=== PATIENT | female | born 1945 | race Caucasian/White ===

== ENCOUNTER 2016-07-12 11:00 | Emergency (ER) | payer MEDICARE ==
[~2016-07-12] VITALS: Ht 167.6 cm; Wt 59.1 kg
[~2016-07-12 11:00] MED LIST: ACYC200C PO; CHOL10008 PO; LOSA50TA37 PO; RESTASIS OU; VERA120T84 PO
--- NOTE | 2016-07-12 11:08 | ED.REPORT ---
HPI-Trauma Minor / Fall Date of Service Jul 12, 2016 ED Provider: Nursing Notes Stated Complaint: STAND BY TRAUMA/POST FALL Allergies: Coded Allergies: albuterol (Verified Allergy, Severe, Shortness of Breath, 10/19/15) tetracycline (Verified Allergy, Severe, 03/24/09) neomycin (Verified Allergy, Mild, Rash, 10/19/15) Uncoded Allergies: RED FOOD DYE (Allergy, Unknown, TONGUE AND LIP SWELLING, 05/17/05) SULFA (Allergy, Unknown, RASH, 03/24/09) Scheduled ([Restasis]) 1 DROP OU BID Acyclovir-Expunged Drug, Do Not Renew! (Acyclovir-Expunged Drug, Do Not Renew!) 200 Mg Capsule 200 MG PO DAILY Losartan Potassium (Losartan Potassium) 50 Mg Tablet 50 MG PO BID Verapamil ER (Verapamil ER) 120 Mg Tablet.er 120 MG PO DAILY Miscellaneous Medications Cholecalciferol (Vitamin D3) (Vitamin D3) 1,000 Unit Tab.chew 1,000 UNIT PO General Time Seen by MD: 11:07 Past Medical History Smoking History Never Smoker Discharge & Departure Referrals: Sam Veliz DO (PCP) Gordon Ramirez DO Jul 12, 2016 11:08 Veronica Bautista MD Jul 12, 2016 11:12
[2016-07-12 11:12] VITALS: BP 183/87; PULSE 76; RESP 14; O2SAT 99
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
[2016-07-12] MEDS ORDERED: 0.9% Sodium Chloride 1,000 ML IV ONE (11:15)
[2016-07-12] MEDS: HYDROmorphone 0.5 mg/0.5 mL iSecure Syringe IVPUSH PRN ×4 (11:35→13:05)
--- NOTE | 2016-07-12 11:40 | DRSVH ---
PROCEDURE: X-RAY PELVIS, ONE OR TWO VIEWS ([id number]) INDICATIONS: trauma TECHNIQUE: One view(s) of the pelvis acquired. COMPARISON: None. FINDINGS: Bones: No fractures or dislocations. No suspicious bony lesions. Soft tissues: Visualized bowel gas pattern is normal. No suspicious soft tissue calcifications. IMPRESSION: Negative for fracture Dictated by: Terry Pedersen M.D. on 07/12/2016 at 11:38 Approved by: Terry Pedersen M.D. on 07/12/2016 at 11:39
--- NOTE | 2016-07-12 11:40 | DRSVH ---
PROCEDURE: X-RAY CHEST ONE VIEW, PORTABLE ([id number]) INDICATIONS: trauma TECHNIQUE: One view of the chest was acquired. COMPARISON: None. FINDINGS: Surgical changes and devices: None. Lungs and pleura: No pleural effusions or pneumothorax. Lungs are clear. Mediastinum: Mediastinal contours appear normal. Heart size is normal. Bones and chest wall: No suspicious bony lesions. Overlying soft tissues appear unremarkable. IMPRESSION: No acute cardiopulmonary abnormality. No posttraumatic changes found. Dictated by: Terry Pedersen M.D. on 07/12/2016 at 11:34 Approved by: Terry Pedersen M.D. on 07/12/2016 at 11:38
[2016-07-12 11:41] LABS: INR 0.95 ratio
[2016-07-12 11:51] LABS: BASOPHILS % (AUTO) 0.2 % (0-3); EOSINOPHILS % (AUTO) 2.7 % (0-5); MONOCYTES % (AUTO) 6.2 % (4-12); Mean Corpuscular Hemoglobin 30.6 pg (27.0-35.0); Mean Corpuscular Volume 86.7 fL (81-100); NEUTROPHILS % (AUTO) 81.3 % (40-74); Platelet Count 266 bil/L (150-400)
[2016-07-12 11:54] LABS: Magnesium 1.9 mg/dL (1.6-2.6)
[2016-07-12 13:06] VITALS: BP 136/72; PULSE 76; RESP 10; O2SAT 99
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
[2016-07-12] MEDS ORDERED: HYDR-4003 PO (14:14)
[2016-07-12] MEDS ORDERED: ONDA8TAB10 PO (14:14)
[2016-07-12] MEDS ORDERED: Ondansetron 2 mg/mL 2 mL Inj ONE ×2 (14:40→15:07)
[2016-07-12] MEDS ORDERED: Promethazine Inj 12.5 MG in Dextrose 5%-Pha MIX 50 ML IV ONE (15:10)
[2016-07-12] MEDS ORDERED: Ondansetron 2 mg/mL 2 mL Inj IVPUSH ONE (15:10)
[2016-07-12 16:15] VITALS: BP 122/69; PULSE 69; RESP 19
== END 2016-07-12 14:54 | disposition home or self-care (01) ==
LOC: SED 11:00
DX: S32.028A Other fracture of second lumbar vertebra, initial encounter for closed fracture (principal); S32.038A Other fracture of third lumbar vertebra, initial encounter for closed fracture; S32.048A Other fracture of fourth lumbar vertebra, initial encounter for closed fracture; W20.8XXA Other cause of strike by thrown, projected or falling object, initial encounter; Y92.828 Other wilderness area as the place of occurrence of the external cause; Y93.H9 Activity, other involving exterior property and land maintenance, building and construction; Y99.8 Other external cause status; E87.1 Hypo-osmolality and hyponatremia; I10 Essential (primary) hypertension; Z88.8 Allergy status to other drugs, medicaments and biological substances; Z88.1 Allergy status to other antibiotic agents; Z88.2 Allergy status to sulfonamides
CPT/HCPCS: 36415; 51702; 71010; 72170; 74177; 80053; 83735; 85025; 85610; 86850; 96361; 96374; 96375; 96376; 99285; J1170; J2405; J7030; Q9967

== ENCOUNTER 2016-07-14 20:21 | Inpatient (IN) | payer MEDICARE ==
[~2016-07-14] VITALS: Ht 165.1 cm; Wt 63.5 kg
[~2016-07-14 20:21] MED LIST changes: +HYDR-4003 PO; +ONDA8TAB10 PO
[2016-07-14 20:26] VITALS: BP 175/94; PULSE 79; RESP 18; O2SAT 97
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
[2016-07-14] MEDS ORDERED: Ondansetron 2 mg/mL 2 mL Inj IVPUSH PRN ×2 (21:45→23:10)
[2016-07-14] MEDS ORDERED: 0.9% Sodium Chloride 1,000 ML IV ONE ×2 (21:45→22:35)
[2016-07-14] MEDS ORDERED: HYDROmorphone 0.5 mg/0.5 mL iSecure Syringe IVPUSH PRN (21:45)
[2016-07-14 21:58] LABS: BASOPHILS % (AUTO) 0 % (0-3); EOSINOPHILS % (AUTO) 0.6 % (0-5); MONOCYTES % (AUTO) 7.2 % (4-12); Mean Corpuscular Hemoglobin 30.3 pg (27.0-35.0); Platelet Count 219 bil/L (150-400)
[2016-07-14] MEDS ORDERED: Potassium Chloride Inj 20 MEQ in Dextrose 5% 250 ML IV ONE (22:35)
[2016-07-14] MEDS ORDERED: Alum-Mag Hydrox-Simeth 30 mL Suspension PO PRN (23:10)
[2016-07-14] MEDS ORDERED: KCl 40 mEq/D5W 500 mL 40 MEQ in IV Premix 500 EACH IV ONE (23:15)
[2016-07-14 23:55] LABS: APPEARANCE,URINE CLEAR (CLEAR,HAZY); COLOR,URINE STRAW (YELLOW); OCCULT BLOOD,URINE TRACE (NEGATIVE); PH,URINE 7.5 (5.0-8.0); UROBILINOGEN,URINE NORMAL (NORMAL)
[2016-07-15] VITALS (9 sets, daily range): BP systolic 127–171; BP diastolic 75–92; PULSE 64–72; RESP 16–20; O2SAT 96–98
[2016-07-15] MEDS ORDERED: Promethazine Inj 12.5 MG in Dextrose 5%-Pha MIX 50 ML IV ONE (00:10)
[2016-07-15] MEDS ORDERED: MetoCLOpramide 5 mg/mL 2 mL Inj IVPUSH PRN (03:20)
[2016-07-15] MEDS: 0.9% Sodium Chloride 1,000 ML IV SCH ×2 (03:29→14:15)
--- NOTE | 2016-07-15 04:39 | PCM.HPMED ---
Subjective Date of Service Jul 15, 2016 Primary Provider: Admitting Physician: Monse Eller DO Primary Care Physician: Clinic,[facility] Residency Attending Physician: Monse Eller DO Chief Complaint: Nausea and vomiting History of Present Illness: Patient is a 71-year-old female with hypertension and osteoporosis presenting with nausea and vomiting. Of note, the patient was seen in the ED on 2016 for left L2-L4 transverse process fractures sustained after a tree limb fell on her. The patient reports nausea and vomiting after taking the prescribed Vicodin. As a result the patient's pain isn't controlled. At time of visit, the patient reports continued low back pain rated a 6 or 7 out of 10 on pain scale. She reports her nausea has improved. Patient otherwise denies fever , chills, abdominal pain, diarrhea, dysuria, chest pain, shortness of breath. In the ED, vitals: temp 36.6, HR 79, RR 18 satting 97% on room air, BP 175/94. Notable labs: Na 117, Cl 77, K 2.5 Review of Systems: A comprehensive review of systems was conducted with the patient and found to be negative except as above in the History of Present Illness. Allergies Coded Allergies: albuterol (Verified Allergy, Severe, Shortness of Breath, 10/19/15) prednisone (Verified Allergy, Severe, 07/12/16) tetracycline (Verified Allergy, Severe, 03/24/09) neomycin (Verified Allergy, Mild, Rash, 10/19/15) Uncoded Allergies: RED FOOD DYE (Allergy, Unknown, TONGUE AND LIP SWELLING, 05/17/05) SULFA (Allergy, Unknown, RASH, 03/24/09) Home Medications Chlorthalidone 25mg daily Losartan 50mg BID Verapamil 120mg daily PMH Osteoporosis Hypertension Recurrent herpes simplex Left transverse process fracture L2-L4 . Surgical History Varicose veins Left breast biopsy Family History Mother alive with memory issues Father at [id number] from systemic lupus Social History Occupation: Retired, former teacher Hx Alcohol Use: Yes Alcoholic Drinks Per Day: one Hx Substance Use: No Hx Tobacco Use: No Smoking Status: Never Smoker Living Arrangement: with Family Exam Vital Signs Vital Sign - Last Date Time Temp Pulse Resp B/P Pulse Ox O2 Delivery O2 Flow Rate FiO2 07/15/16 00:54 65 20 147/81 97 Room Air 07/15/16 00:45 36.4 Intake and Output 07/14/16 07/14/16 07/15/16 Cumulative From/Thru 15:00 23:00 07:00 07/14/16 20:26 - 07/15/16 00:45 Intake Total 999 ml 999 ml Balance 999 ml 999 ml Intake IV Total 999 ml 999 ml Exam General: Patient lying comfortably in bed. No acute distress, well-developed, well-nourished. Falling in and out of sleep at time of interview. HEENT: Normocephalic, atraumatic. External ears without defect. Pupils equal, round, and reactive to light. Anicteric sclerae, moist conjunctivae, and no lid lag. Oropharynx free of erythema and cobble stoning with moist mucosa. Neck: Supple. Cardiovascular: Regular rate and rhythm with no murmurs, rubs, or gallops appreciated Pulmonary: Clear to auscultation bilaterally with no crackles, wheezes, or rhonchi. Normal respiratory effort with no use of accessory muscles. Abdomen: Bowel tones present. Soft, nontender, nondistended. Extremities: No clubbing, cyanosis, edema, or lymphadenopathy appreciated. Skin: Normal temperature, turgor, and texture; no rash, ulcers, or subcutaneous nodules appreciated. Neurological: Cranial nerves grossly intact. Psychiatric: Normal mood and affect. Alert and oriented to person, place, and time. Lab and Diagnostics Result Diagram: 07/14/160 07/15/16 0200 Assessment & Plan Patient is a 71-year-old female with hypertension and osteoporosis presenting with back pain, nausea and vomiting, and admitted for severe hyponatremia and hypokalemia. 1. Acute electrolyte abnormalities. Present on admission. Active -Na 117, K 2.5 -From volume depletion secondary to vomiting -Continue with NS. Goal of raising Na to no more than 125 in 24-hours -Replete K -Follow with BMP 2. Acute L2-L4 transverse processes fracture. Present on admission. Active -Patient does not tolerate opiates very well. She received IV Dilaudid and this also caused nausea -Continue with Tylenol PRN, morphine PRN -Consider Toradol if intolerant to morphine 3. Acute nausea and vomiting. Present on admission. Improving -Zofran and Reglan PRN -Follow clinically 4. Hypertension, chronic. Present on admission -Hold home chlorthalidone given volume depletion and hyponatremia 5. Code status -Review code status with patient as she was not in the mood to discuss this at time of visit -Will be full code in the interim Patient Status: Patient is admitted under inpatient status with expected length of stay greater than 2 midnights due to severity of presenting symptoms, risk of adverse event, and complexity of treatment plan VTE Prophylaxis: Sub-Q Heparin (Unfractionated) Attending Statement The patient was seen and examined together with house staff on 07/15/2016 and I agree with the history, exam and plan as outlined in the note above. Bam Chavez DO Jul 15, 2016 04:39 Monse Eller DO Jul 15, 2016 06:44
[2016-07-15 05:41] LABS: BASOPHILS % (AUTO) 0.1 % (0-3); EOSINOPHILS % (AUTO) 0.9 % (0-5); MONOCYTES % (AUTO) 7.9 % (4-12); Mean Corpuscular Hemoglobin 30.3 pg (27.0-35.0); Mean Corpuscular Volume 85.1 fL (81-100); NEUTROPHILS % (AUTO) 76.9 % (40-74); Platelet Count 205 bil/L (150-400)
--- NOTE | 2016-07-15 05:59 | NUR ---
Admit Patient arrived on unit at 0045 via gurney, sliding board used to assist on to bed. Ambulate with FWW minimal assistance to BR. Noted unsteady gait. Oriented to room, call light, and phone. Denies CP, and abdominal discomfort at this time.
[2016-07-15] MEDS ORDERED: HYDROmorphone 1 mg/mL Inj IVPUSH PRN (08:20)
[2016-07-15] MEDS: Verapamil SR 120 mg ER12 Tablet PO SCH (08:43)
[2016-07-15] MEDS: Heparin 5,000 Unit/mL Inj SUBQ SCH ×2 (08:44→18:21)
[2016-07-15] MEDS: Acetaminophen IV 1,000 MG in IV Premix 1 EACH IV PRN ×2 (09:10→18:21)
--- NOTE | 2016-07-15 12:22 | PCM.PNMED ---
Subjective Date of Service Jul 15, 2016 Subjective Follow-up for intractable back pain. Severe hyponatremia Patient seen and examined at bedside. Medical record reviewed. After discussing nursing staff She is to continue low back pain 5 out of [address] is quite improved comparing to her pain on admission. No neurological symptom. Sodium 119 today Exam Vital Signs Vital Sign - Last Date Time Temp Pulse Resp B/P Pulse Ox O2 Delivery O2 Flow Rate FiO2 07/15/16 08:41 36.8 72 16 171/84 98 Room Air Intake and Output 07/14/16 07/14/16 07/15/16 Cumulative From/Thru 15:00 23:00 07:00 07/14/16 20:26 - 07/15/16 04:59 Intake Total 999 ml 0 ml 999 ml Output Total 750 ml 750 ml Balance 999 ml -750 ml 249 ml Intake Oral 0 ml 0 ml IV Total 999 ml 999 ml Output Urine Total 750 ml 750 ml # Bowel Movements 0 0 Exam General: Well-nourished female in the comfortably. HEENT: Sclera is anicteric Neck: No tenderness, no JVD, trachea is midline Chest: Normal respiratory effort, no chest tenderness. Lung: Clear bilaterally, no cord, no wheezing Heart: S1-S2 irregularly concluding Abdomen: Benign Extremity edema, no cyanosis IVs and Medications Medications Reviewed: Medications were reviewed in detail Lab and Diagnostics Result Diagram: 07/15/1652407/15/16524 Assessment & Plan Patient is a 71-year-old female with hypertension and osteoporosis presenting with back pain, nausea and vomiting, and admitted for severe hyponatremia and hypokalemia. 1. Severe hypovolemic hyponatremia This is secondary to vomiting/GI loss. Patient has no neurological deficit -Continue with NS. Goal of raising Na to no more than 125 in 24-hours Sodium 119 today. BMP every 12 hours 2. Acute L2-L4 transverse processes fracture. Present on admission. Active -Patient still complaining of back pain with morphine. There is 5 of 10. She is agreeable to resume Dilaudid. 3. Acute nausea and vomiting. Present on admission. Improved -Zofran and Reglan PRN 4. Hypertension, chronic. Present on admission : Suboptimally controlled Losartan and amlodipine. Patient is clinically and hemodynamically stable. Continue monitor sodium and impress potassium PRN BMP every 12 hours. Discharge anticipated within 24-48 hours VTE Prophylaxis: Sub-Q Heparin (Unfractionated) Time spent 25 minutes Sam Rivera MD Jul 15, 2016 12:21
[2016-07-15] MEDS ORDERED: hydrALAZINE 20 mg/mL Inj IV PRN (12:25)
--- NOTE | 2016-07-15 16:23 | NUR ---
Social Work Initial Assessment: SW met with patient at bedside to discuss discharge plan. Patient is a 71 year old female admitted on 07/14/16 for hyponatremia, hypokalemia, and intractable back pain. Patient payer as [employer]. 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 Patient PCP as MD Cherry. Patient resides in [facility] with Sam, . Patient states residing in a 2 story home. [facility] pharmacy of choice as [facility]. Patient has no HHC, SNF, or DME history. Patient states she drives independently and independent with needs at home. Patient states to assist with care needs at home. No other identified discharge needs at this time. Per report in rounds, PT to be ordered. SW to follow pending further clinical course. PLAN: Home with , via POV. SW will continue to follow pending PT eval and clinical course Marlin OJEDA Addendum: 07/15/16 at 1632 by SAGRARIO GREY Amended: Links added.
[2016-07-15] MEDS ORDERED: HYG25 PO (17:10)
[2016-07-15] MEDS ORDERED: Potassium Chloride 20 mEq SR Tablet PO SCH ×2 (18:50→18:58)
[2016-07-15] MEDS ORDERED: Potassium Chloride Inj 40 MEQ in 0.9% Sodium Chloride 1,000 ML IV ONE (19:00)
--- NOTE | 2016-07-15 20:08 | NUR ---
ACTIVITY/MD NOTIFICATION IV APAP and Dilaudid IVP X 1 was administered for BTP. Patients pain level is 1-3 after her pain medication, which is tolerable for her. Patient was started on a diet. Denies nausea. No emesis noted. Denies SOB. Patient has been able to get OOB and ambulate in her room and the bathroom with SBA. Gait is steady. Tolerated activity well. Voiding without any problems. Patient is on remote tele. Per telehealth nurse patient is on sinus rhythm; HR-60's with some PAC's and 1st degree AVB. Med rec updated. Dr. Rivera made aware RE: To review med rec. K level is 2.8 and NA is 121. Dr. Rivera made aware. New orders received.
[2016-07-16] VITALS (7 sets, daily range): BP systolic 125–162; BP diastolic 69–89; PULSE 60–80; RESP 16–20; O2SAT 96–99
[2016-07-16] MEDS: Heparin 5,000 Unit/mL Inj SUBQ SCH ×3 (01:15→16:35)
--- NOTE | 2016-07-16 04:45 | NUR ---
Activity/Pain Patient was up to bathroom x5 times during shift. Patient ambulated well. Minimal assist. Patient stated that pain was 6/10 on pain scale. Acetaminophen PO administered for pain. Blood pressure elevated slightly otherwise VSS. Call light within reach. Care continues.
[2016-07-16] MEDS: Verapamil SR 120 mg ER12 Tablet PO SCH (08:12)
[2016-07-16] MEDS ORDERED: Furosemide 10 mg/mL 2 mL Inj IVPUSH ONE (13:25)
--- NOTE | 2016-07-16 13:32 | PCM.PNMED ---
Subjective Date of Service Jul 16, 2016 Subjective Follow-up for severe hyponatremia and intractable back pain. Patient seen and examined at bedside. No significant overnight event. Sodium 125 today. Exam Vital Signs Vital Sign - Last Date Time Temp Pulse Resp B/P Pulse Ox O2 Delivery O2 Flow Rate FiO2 07/16/16 09:57 36.4 80 16 160/79 99 Room Air Intake and Output 07/15/16 07/15/16 07/16/16 Cumulative From/Thru 14:59 22:59 06:59 07/14/16 20:26 - 07/16/16 06:48 Intake Total 1769 ml 2094 ml 4862 ml Output Total 1600 ml 1950 ml 4300 ml Balance 169 ml 144 ml 562 ml Intake Oral 760 ml 810 ml 1570 ml IV Total 1009 ml 1284 ml 3292 ml Output Urine Total 1600 ml 1950 ml 4300 ml # Bowel Movements 0 0 0 Exam General: Funduscopic instrument and comfortably HEENT: Sclerae anicteric Neck: No spine tenderness, no cervical lymphadenopathy, supple Chest: Normal respiratory effort Lung: Clear bilaterally, no wheezing Heart: S1-S2 regular rate and region, no gallop Abdomen: Non-tender, non distended, no palpable mass: Extremity: No cyanosis, no edema, no calf tenderness Neuro: Awake, alert and oriented 3. Grossly non focal IVs and Medications Medications Reviewed: Medications were reviewed in detail Lab and Diagnostics Result Diagram: 07/15/16 0525 07/16/16 0820 Assessment & Plan Patient is a 71-year-old female with hypertension and osteoporosis presenting with back pain, nausea and vomiting, and admitted for severe hyponatremia and hypokalemia. 1. Severe hypovolemic hyponatremia This is secondary to vomiting/GI loss. -Continue with NS. Give Lasix 20 mg IV 1 dose Sodium 125 today. 2. Acute L2-L4 transverse processes fracture. Present on admission. Active -Dilaudid for pain. 3. Acute nausea and vomiting. Present on admission. Improved -Zofran and Reglan PRN 4. Hypertension, chronic. Present on admission : Suboptimally controlled Losartan and amlodipine. Will need an adjustment hypertensive medication Patient is clinically and hemodynamically stable. Sodium is 125 today. Continue normal saline at 100 mL. Lipid BMP in a.m. Discharge anticipated within 24-48 hours VTE Prophylaxis: Sub-Q Heparin (Unfractionated) VTE Mechanical Devices: Intermittant Pneumatic CD Resuscitation Status: CPR: Attempt Resuscitation Time spent 25 minutes Sam Rivera MD Jul 16, 2016 13:31
[2016-07-16] MEDS: 0.9% Sodium Chloride 1,000 ML IV SCH (15:26)
[2016-07-16] MEDS: Polyethylene Glycol (PEG) 17 Gm Powder PO PRN ×2 (16:30→16:35)
--- NOTE | 2016-07-16 18:36 | NUR ---
BP decreased significantly, after receiving IV Lasix, decreased 125/69. Pt feeling better, ambulating, eating/drinking well
--- NOTE | 2016-07-16 23:38 | NUR ---
Activity Patient ambulating around hallway at beginning of shift. Patient states back pain 5/10 on pain scale. Patient appears to be comfortable. VSS. Call light within reach. Care continues.
[2016-07-17] MEDS: Heparin 5,000 Unit/mL Inj SUBQ SCH ×2 (00:20→08:15)
[2016-07-17 00:49] VITALS: BP 146/80; PULSE 67; RESP 18; O2SAT 96
[2016-07-17] MEDS: 0.9% Sodium Chloride 1,000 ML IV SCH (02:15)
[2016-07-17 04:58] VITALS: BP 150/81; PULSE 70; RESP 20; O2SAT 98
[2016-07-17 06:09] VITALS: PULSE 70
[2016-07-17 06:42] LABS: Mean Corpuscular Hemoglobin 30.2 pg (27.0-35.0); Mean Corpuscular Volume 87.2 fL (81-100)
--- NOTE | 2016-07-17 07:22 | PCM.DIMED ---
Discharge Instructions Date of Service Jul 17, 2016 Dates of Hospitalization Jul 14, 2016 at 23:28 Discharge Diagnosis Discharge Diagnosis Acute L2-L4 transverse processes fracture, Intractable back pain, NAusea and vomiting, Hypovolemic Hyponatremia , Hypertension Diet No restrictions, Low fat, Low Sodium Activity No restrictions Patient Instructions Primary Care doctor in 2 weeks . Home blood pressure monitoring. PCP to adjust medications Follow-up with PCP in: 1 week (Primary care Doctor in 2 weeks ) Sam Rivera MD Jul 17, 2016 07:22
[2016-07-17] MEDS ORDERED: Acetaminophen PO (07:24)
--- NOTE | 2016-07-17 07:31 | PCM.DC.MED ---
Discharge Summary Date of Service Jul 17, 2016 Dates of Hospitalization Date of Hospital Admission Jul 14, 2016 at 23:28 Date of Discharge: Jul 17, 2016 Providers: Admitting Physician: Monse Eller DO Primary Care Physician: [facility] Residency Attending Physician: Monse Eller DO Diagnosis at Time of Discharge Diagnosis at Time of Discharge Acute L2-L4 transverse processes fracture, Intractable back pain, NAusea and vomiting, Hypovolemic Hyponatremia , Hypertension Brief History Patient is a 71-year-old female with hypertension and osteoporosis presenting with nausea and vomiting. Of note, the patient was seen in the ED on 2016 for left L2-L4 transverse process fractures sustained after a tree limb fell on her. The patient reports nausea and vomiting after taking the prescribed Vicodin. As a result the patient's pain isn't controlled. At time of visit, the patient reports continued low back pain rated a 6 or 7 out of 10 on pain scale. She reports her nausea has improved. Patient otherwise denies fever , chills, abdominal pain, diarrhea, dysuria, chest pain, shortness of breath. Hospital Course Patient is a 71-year-old female with hypertension and osteoporosis presenting with back pain, nausea and vomiting, and admitted for severe intractable nausea and vomiting hypokalemia. 1. Severe hypovolemic hyponatremia This was secondary to vomiting/GI loss. Patient was treated with normal saline, sodium level returned to normal over the course of 3 days. Patient has no neurological symptom and her nausea and vomiting subsided. Her back pain is under control with Tylenol 2. Acute L2-L4 transverse processes fracture. Present on admission. Improved . 3. Acute nausea and vomiting. Present on admission. Improved -Zofran PRN 4. Hypertension, chronic. Present on admission : Suboptimally controlled Patient is on Losartan and amlodipine. Blood pressure monitoring discuss primary care doctor to further adjust her blood pressure medication. Her BP was in the 150-160 systolic due to hospitalization but that seems to be secondary to IV fluid. She was on normal saline at 100 mL per hour Patient discharged home in stable condition Exam Vital Signs (Last) Date Time Temp Pulse Resp B/P Pulse Ox O2 Delivery O2 Flow Rate FiO2 07/17/16 06:09 70 07/17/16 04:58 36.7 20 150/81 98 Room Air Exam General: nad. HEENT: Sclera is anicteric Neck: No cervical lymphadenopathy. Supple Chest: Normal respiratory effort, no chest tenderness. Lung: Clear bilaterally to auscultation, no crackle, no wheezing Heart: S1-S2 regularly rate and rhythm Abdomen: Benign. Non tender, non-distended Extremity : No edema, no cyanosis, no calf tenderness Neuro : Grossly non focal. AAO x 3 Test 07/14/16 21:50 07/14/16 23:40 07/15/16 01:06 07/15/16 05:25 Magnesium Level 1.7mg/dL (1.6-2.6) Total Bilirubin 0.7mg/dL (0.0-1.2) Aspartate Amino Transf (AST/SGOT) 27U/L (0-50) Alanine Aminotransferase (ALT/SGPT) 18U/L (0-32) Alkaline Phosphatase 48U/L (25-165) Total Protein 6.7g/dL (6.4-8.4) Albumin 4.0g/dL (3.4-5.0) Urine Color Straw (YELLOW) Urine Appearance Clear (CLEAR,HAZY) Urine pH 7.5 (5.0-8.0) Urine Specific Clay 1.015 (1.003-1.035) Urine Protein Negativemg/dL (NEG,TRACE) Urine Glucose (UA) Negativemg/dL (NEGATIVE) Urine Ketones Negativemg/dL (NEGATIVE) Urine Occult Blood Trace (NEGATIVE) Urine Nitrite Negative (NEGATIVE) Urine Bilirubin Negative (NEGATIVE) Urine Urobilinogen Normalmg/dL (NORMAL) Urine Leukocyte Esterase Negative (NEGATIVE) Urine RBC 0-2/hpf (0-2) Urine WBC 0-5/hpf (0-5) Urine Epithelial Cells Occasional/hpf (NONE-MOD) Urine Crystals None seen (NONE SEEN) Urine Bacteria None/hpf (NONE-FEW) Urine Hyaline Casts None/lpf (NONE) Urine Granular Casts None seen (NONE SEEN) Urine Waxy Casts None seen (NONE SEEN) Urine Red Blood Cell Casts None seen (NONE SEEN) Urine White Blood Cell Casts None seen (NONE SEEN) Urine Mucus None seen (None Seen) Urine Trichomonas None seen (NONE SEEN) Urine Yeast None (NONE SEEN) Urinalysis Comment None Urine Culture Reflexed Not indicated Hold Urine Received (Received) Neutrophils (%) (Auto) 76.9% (40-74) Lymphocytes (%) (Auto) 13.9% (14-46) Monocytes (%) (Auto) 7.9% (4-12) Eosinophils (%) (Auto) 0.9% (0-5) Basophils (%) (Auto) 0.1% (0-3) Test 07/17/16 05:40 White Blood Count 4.6th/mm3 (3.8-10.1) Red Blood Count 3.67mil/mm3 (3.90-5.20) Hemoglobin 11.1g/dL (12.0-15.6) Hematocrit 32.0% (35.0-46.0) Mean Corpuscular Volume 87.2fL (81-100) Mean Corpuscular Hemoglobin 30.2pg (27.0-35.0) Mean Corpuscular Hemoglobin Concent 34.7% (32.0-37.0) Red Cell Distribution Width 12.1% (12.3-15.4) Platelet Count 213bil/L (150-400) Sodium Level 134mEq/L (134-144) Potassium Level 3.7mEq/L (3.5-5.2) Chloride Level 97mEq/L (97-108) Carbon Dioxide Level 27mmol/L (18-29) Blood Urea Nitrogen 11mg/dL (8-27) Creatinine 0.51mg/dL (0.57-1.00) Estimat Glomerular Filtration Rate 171mL/min (>59) Glucose Level 93mg/dL (60-99) Calcium Level 8.6mg/dL (8.5-10.1) Discharge Medications Discharge Medications ([Restasis]) 1 DROP OU BID (Reported) Chlorthalidone (Chlorthalidone) 25 Mg Tablet 25 MG PO DAILY (Reported) Losartan Potassium (Losartan Potassium) 50 Mg Tablet 50 MG PO BID (Reported) Ondansetron ODT (Ondansetron ODT) 8 Mg Tab.rapdis 8 MG PO Q6H Prescribed by: SARA ALLEN MD Verapamil ER (Verapamil ER) 120 Mg Tablet.er 120 MG PO DAILY (Reported) As needed ([Acetaminophen]) 325 MG TABLET 650 MG PO Q6H PRN PRN For Mild Pain or Fever Prescribed by: MATY FARR MD Followup Plan Disposition: Home Follow-up plan Follow-up with primary care doctor in 1 week Discharge Diet: No restrictions, Low fat, Low Sodium Discharge Activity: No restrictions Patient Instructions Primary Care doctor in 2 weeks . Home blood pressure monitoring. PCP to adjust medications Follow-up with PCP in: 1 week (Primary care Doctor in 2 weeks ) Time spent 35 minutes. Patient seen and examined on the day of discharge Maty Farr MD Jul 17, 2016 07:31
[2016-07-17] MEDS: Verapamil SR 120 mg ER12 Tablet PO SCH (08:15)
[2016-07-17 09:39] VITALS: PULSE 77
--- NOTE | 2016-07-17 10:29 | NUR ---
Discharged patient is alert and oriented X3. Spouse at bed side. Reviewed discharge instructions, care notes, and discharge/continuing medications with patient. patient understood discharge instructions/medications and agreed. patient will schedule follow up appointment with PCP per discharge instructions. IV discontinued from left arm with out difficulty. fire control technician notified r/ discontinuing Telemetry. Denied pain or discomfort during discharge. patient accompanied by nurse and preferred to walk. PCN notified.
== END 2016-07-17 10:27 | disposition home or self-care (01) | DRG 641 ==
LOC: SED 20:21 → OSC 23:28
PROVIDERS: ADMIT Internal Medicine; ATTEND Internal Medicine
DX: E87.1 Hypo-osmolality and hyponatremia (principal); E87.6 Hypokalemia; S32.029D Unspecified fracture of second lumbar vertebra, subsequent encounter for fracture with routine healing; S32.039D Unspecified fracture of third lumbar vertebra, subsequent encounter for fracture with routine healing; S32.049D Unspecified fracture of fourth lumbar vertebra, subsequent encounter for fracture with routine healing; I10 Essential (primary) hypertension; R11.2 Nausea with vomiting, unspecified